=== PATIENT | female | born 1955 | race Caucasian/White ===

== ENCOUNTER 2022-12-03 10:01 | Observation (INO) ==
--- NOTE | 2022-10-30 15:03 | PAT Medication Instructions ---
Medication Instructions Date of Service October 30, 2022 Home Medications Medication Instructions Recorded ondansetron HCl 4 mg tablet 4 mg PO Q8H PRN nausea and 03/18/22 vomiting #10 tabs eluxadoline 75 mg tablet (Viberzi) 75 mg PO BID #60 tabs 07/16/22 acetaminophen 650 mg 1,300 mg PO Q12H PRN pain #120 tabs 09/30/22 tablet,extended release (Tylenol Arthritis Pain) sertraline 50 mg tablet See Rx Instructions .Route 09/30/22 .COMPLEX #30 tabs cetirizine 5 mg-pseudoephedrine ER 1 tab PO BID #30 tabs 10/21/22 120 mg tablet,extended release,12hr (Zyrtec-D) fluticasone propionate 115 2 puff inhalation BID #12 grams 10/21/22 mcg-salmeterol 21 mcg/actuation HFA inhaler (Advair HFA) fluticasone propionate 50 2 spray intranasal BID #16 grams 10/21/22 mcg/actuation nasal spray,suspension psyllium husk 0.52 gram capsule (Daily Fiber) 1.04 gm PO QAM loperamide 2 mg tablet 4 mg PO QAM ondansetron HCl 4 mg tablet 4 mg PO Q8H PRN nausea and vomiting eluxadoline 75 mg tablet (Viberzi) 75 mg PO BID glucosamine 750 [id number] no1 644 mg-C 30 mg-renetta 1 mg tablet (Osteo Bi-Flex Triple Strength) 1 tab PO BID ipratropium 20 mcg-albuterol 100 mcg/actuation mist for inhalation 1 puff inhalation QID PRN Wheezing acetaminophen 650 mg tablet,extended release (Tylenol Arthritis Pain) 1,300 mg PO Q12H PRN pain sertraline 50 mg tablet See Rx Instructions cefdinir 300 mg capsule 300 mg PO BID cetirizine 5 mg-pseudoephedrine ER 120 mg tablet,extended release,12hr (Zyrtec- D) 1 tab PO BID fluticasone propionate 115 mcg-salmeterol 21 mcg/actuation HFA inhaler (Advair HFA) 2 puff inhalation BID fluticasone propionate 50 mcg/actuation nasal spray,suspension 2 spray intranasal BID prednisone 20 mg tablet 40 mg PO DAILY alprazolam 0.25 mg tablet 0.25 mg PO QAM amlodipine 5 mg tablet 5 mg PO QAM lisinopril 5 mg tablet 5 mg PO PM metronidazole 0.75 % topical cream 1 applic topical BID PRN Rash omeprazole 20 mg capsule,delayed release 20 mg PO BID Continue as directed sertraline 50 mg tablet See Rx Instructions cefdinir 300 mg capsule 300 mg PO BID prednisone 20 mg tablet 40 mg PO DAILY STOP taking 2 weeks before surgery glucosamine 750 [id number] no1 644 mg-C 30 mg-renetta 1 mg tablet (Osteo Bi-Flex Triple Strength) 1 tab PO BID STOP taking 24 hours before surgery metronidazole 0.75 % topical cream 1 applic topical BID PRN Rash DO NOT take the morning of surgery psyllium husk 0.52 gram capsule (Daily Fiber) 1.04 gm PO QAM loperamide 2 mg tablet 4 mg PO QAM eluxadoline 75 mg tablet (Viberzi) 75 mg PO BID cetirizine 5 mg-pseudoephedrine ER 120 mg tablet,extended release,12hr (Zyrtec- D) 1 tab PO BID Take morning of surgery With a small sip of water, OTHERWISE NOTHING TO EAT OR DRINK AFTER MIDNIGHT: ondansetron HCl 4 mg tablet 4 mg PO Q8H PRN nausea and vomiting (if needed) ipratropium 20 mcg-albuterol 100 mcg/actuation mist for inhalation 1 puff in halation QID PRN Wheezing (use if needed; please bring with you to hospital day of surgery if possible) acetaminophen 650 mg tablet,extended release (Tylenol Arthritis Pain) 1,300 mg PO Q12H PRN pain (if needed) fluticasone propionate 115 mcg-salmeterol 21 mcg/actuation HFA inhaler (Advair HFA) 2 puff inhalation BID fluticasone propionate 50 mcg/actuation nasal spray,suspension 2 spray intranasal BID alprazolam 0.25 mg tablet 0.25 mg PO QAM amlodipine 5 mg tablet 5 mg PO QAM omeprazole 20 mg capsule,delayed release 20 mg PO BID Take evening before surgery ondansetron HCl 4 mg tablet 4 mg PO Q8H PRN nausea and vomiting (if needed) ipratropium 20 mcg-albuterol 100 mcg/actuation mist for inhalation 1 puff inhalation QID PRN Wheezing (if needed) acetaminophen 650 mg tablet,extended release (Tylenol Arthritis Pain) 1,300 mg PO Q12H PRN pain (if needed) eluxadoline 75 mg tablet (Viberzi) 75 mg PO BID cetirizine 5 mg-pseudoephedrine ER 120 mg tablet,extended release,12hr (Zyrtec- D) 1 tab PO BID fluticasone propionate 115 mcg-salmeterol 21 mcg/actuation HFA inhaler (Advair HFA) 2 puff inhalation BID fluticasone propionate 50 mcg/actuation nasal spray,suspension 2 spray intranasal BID lisinopril 5 mg tablet 5 mg PO PM omeprazole 20 mg capsule,delayed release 20 mg PO BID Other Notes If you have any questions please call us at [phone] or [phone] or [phone] or [phone]
--- NOTE | 2022-11-07 11:24 | Anesthesiology Consultation ---
Date of Service November 07, 2022 Assessment & Plan (1) Encounter for pre-operative examination: Chart Review Chart Review: Acceptable Risk for Surgery (pending PCP clearance and response re: anemia ) and Patient seen in Pre Admission Testing - Awaiting PCP clearance 11/18/22 (workload note sent to PCP to address at upcoming appt re: anemia) - Pt is NOT a Same Day Joint candidate due to BMI Per [facility] appt on 11/07/22, patient denies any recent travel or large group activities. Pt with cough and congestion around 10/21/22. Tested Covid negative at home. Treated with steroids and antibiotic. Feeling better- mild residual congestion- almost completely resolved. Pt is vaccinated for Covid. Preop Covid testing done in PAT 11/07/22=negative. Educated on importance of using Covid precautions one week prior to surgery Teaching & Discussion Pre-Anesthesia Teaching/Discussion Notes: Instructed NPO after midnight before surgery,except medications with 15 cc of water. Medication instructions provided according to the [facility] guidelines. History Surgery Operation Date: 12/03/22 12:45 Proposed Procedures p Left Total Knee Arthroplasty - Aldo Tony MD Height/Weight Height: 5 ft 4 in Weight: 122.4 kg Allergies Allergy/AdvReac Type Severity Reaction Status Date / Time erythromycin base Allergy Severe Nausea Verified 10/30/22 12:20 adhesive Allergy Intermediate Rash Verified 11/07/22 11:22 colestipol Allergy Intermediate Joint Pain Verified 10/30/22 12:20 doxycycline Allergy Intermediate Hives Verified 10/30/22 12:20 famotidine AdvReac Severe CP, joint Verified 10/30/22 12:20 pain duloxetine [From Cymbalta] AdvReac Intermediate Anxiety Verified 10/30/22 12:20 Medications Home Medications Medication Instructions Recorded Confirmed Last Taken psyllium husk 0.52 gram capsule 1.04 gm PO QAM 02/28/19 10/30/22 Unknown (Daily Fiber) loperamide 2 mg tablet 4 mg PO QAM 09/03/20 10/30/22 06/14/21 ondansetron HCl 4 mg tablet 4 mg PO Q8H PRN nausea and 03/18/22 10/30/22 Unknown vomiting #10 tabs eluxadoline 75 mg tablet (Viberzi) 75 mg PO BID #60 tabs 07/16/22 10/30/22 Unknown glucosamine 750 [id number] 1 tab PO BID 09/16/22 10/30/22 Unknown no1 644 mg-C 30 mg-reentta 1 mg tablet (Osteo Bi-Flex Triple Strength) ipratropium 20 mcg-albuterol 100 1 puff inhalation QID PRN Wheezing 09/16/22 10/30/22 Unknown mcg/actuation mist for inhalation acetaminophen 650 mg 1,300 mg PO Q12H PRN pain #120 tabs 09/30/22 10/30/22 Unknown tablet,extended release (Tylenol Arthritis Pain) cefdinir 300 mg capsule 300 mg PO BID 10/21/22 10/30/22 Unknown fluticasone propionate 115 2 puff inhalation BID #12 grams 10/21/22 10/30/22 Unknown mcg-salmeterol 21 mcg/actuation HFA inhaler (Advair HFA) fluticasone propionate 50 2 spray intranasal BID #16 grams 10/21/22 10/30/22 Unknown mcg/actuation nasal spray,suspension lisinopril 5 mg tablet 5 mg PO PM 10/30/22 10/30/22 Unknown metronidazole 0.75 % topical cream 1 applic topical BID PRN Rash 10/30/22 10/30/22 Unknown omeprazole 20 mg capsule,delayed 20 mg PO BID 10/30/22 10/30/22 Unknown release alprazolam 0.25 mg tablet 0.25 mg PO HS PRN sleep #30 tabs 11/07/22 Unknown cetirizine 10 mg tablet (Zyrtec) 10 mg PO QPM 11/07/22 11/07/22 Unknown Past Medical History Medical History Acid reflux Well controlled and stable with Omeprazole Acne rosacea Stable Agoraphobia with panic attacks Allergic rhinitis Anxiety Asthma recent flare up with pollen/season > treated with steroids and abx- almost back to baseline (improving)> (usually) rare res inh use COPD, moderate recent flare up with pollen/season > treated with steroids and abx- almost back to baseline (improving)> (usually) rare res inh use History of anesthesia reaction during last EGD, when anesthesia was being started, pt's eyes kept rapidly moving back and forth, and after that procedure only, experienced severe nausea History of Clostridioides difficile infection 2020 > resolved Hypercholesterolemia Hypertension Irritable bowel syndrome with diarrhea Sleep apnea cpap Exercise / Class Metabolic Activity III < 4 Walking/Shop/Light housework (one flight of stairs- no chest pain, mild SOB ) Past Family History Family History Mother Depression Diabetes Coronary heart disease Lung cancer Father Diabetes Lung cancer Brother Diabetes COPD (chronic obstructive pulmonary disease) Sister Lung cancer Past Surgical History Surgical History H/O arthroscopic knee surgery right H/O wrist surgery right History of colonoscopy History of esophagogastroduodenoscopy (EGD) History of total right knee replacement Hx of lumpectomy right breast > benign S/P trigger finger release left thumb [place] teeth extracted Past Anesthesia History No Hx of Anesthesia Complications (remote hx of issues with 2019 EGD at [facility] (pt felt like eyes were moving back and forth after receiving sedation medication through IV/severe PONV- no issues noted per 12/26/19 EGD anesthesia record at [facility] ) and No Family Hx of Anesthesia Complications (with exception to children- PONV ) History of PONV History of PONV (remote hx of nausea with most recent EGD at [facility] in 2019) and Hx of Motion Sickness Social History Smoking Status: Never smoker Do You Dip or Chew Tobacco: No Hx Alcohol Use: No Hx Substance Use: No substance use type: does not use Review of Systems Chest heaviness - with most recent URI- PCP aware- had EKG done in office (no issues)- no issues since that time - will be seeing PCP prior to surgery for clearance 11/18/22 Mild congestion since recent URI- continues to improve Increased leg cramping - usually at night Patient denies chest pain, shortness of breath, cough, wheezing, palpitations. No hx of seizures, stroke, GA. No hx of blood clots or blood transfusions Physical Exam Vital Signs VITALS BP 119/75 P 66 TEMP 97.7 SP02 97% RESP 16 Constitutional no acute distress ENMT Mouth: no TMJ clicking Thyromental Distance: < 3.5 Finger Breadths (3.0) Mallampati Class: III Neck + thick neck and + limited neck extension (mild ) Respiratory normal respiratory effort; no respiratory distress Auscultation: lungs clear to auscultation bilaterally; no wheezes Cardiovascular Rate/Rhythm: regular rate and regular rhythm Heart Sounds: no murmur Vessels: no carotid bruit Musculoskeletal Spine: no pain with cervical ROM Extremities: extremities normal to inspection Psychiatric Orientation: alert Lab Results Anesthesia Preop Results Results Anesthesia Widget: WBC 5.11 K/ul (4.8-10.8) 11/07/22 Hgb 11.9 g/dl (12.0-16.0) L 11/07/22 Hct 35.4 % (37.0-47.0) L 11/07/22 Plt 175 K/uL (130-400) 11/07/22 Na 139 mmol/L (136-145) 11/07/22 K 4.1 mmol/L (3.5-5.1) 11/07/22 Cl 105 mmol/L (98-107) 11/07/22 CO2 27 mmol/L (21-32) 11/07/22 BUN 23 mg/dl (6-23) 11/07/22 Creat 0.74 mg/dl (0.6-1.2) 11/07/22 Glucose Level 114 mg/dl (70-99(Fasting)) H 11/07/22 PT 10.5 Seconds (9.0-12.0) 11/07/22 PTT 27.7 Seconds (21.0-31.0) 11/07/22 INR 1.0 (0.9-1.1) 11/07/22 Urine Color Yellow 11/07/22 Urine Appearance Clear (Clear) 11/07/22 Urine pH 6.0 (4.5-7.5) 11/07/22 Urine Specific [place] 1.011 (1.000-1.030) 11/07/22 Urine Protein Negative (Negative) 11/07/22 Urine Glucose (UA) Negative (Negative) 11/07/22 Urine Ketones Negative (Negative) 11/07/22 Urine Blood Negative (Negative) 11/07/22 Urine Nitrite Negative (Negative) 11/07/22 Urine Bilirubin Negative (Negative) 11/07/22 Urine Urobilinogen Negative (Negative) 11/07/22 Urine Leukocyte Esterase Negative (Negative) 11/07/22 Blood Type A Positive 11/07/22 Antibody Screen NEGATIVE 11/07/22 Testing Laboratory Results Mild anemia- new from 09/2022- workload note sent to PCP to address at upcoming clearance appt Electrocardiogram Date: 11/07/22 Findings: + NSR @ (66bpm ) Normal EKG per cardio Chest X-Ray Date: 11/07/22 Findings: + NAD
--- NOTE | 2022-11-27 08:28 | History & Physical Report ---
Date of Service November 27, 2022 Assessment & Plan (1) Primary osteoarthritis of left knee: Plan: Treatment options discussed with the patient. She would like to proceed with surgery. Risks, benefits and alternatives to surgery including but not limited to infection, DVT, pain, stiffness, need for revision surgery, damage to blood vessels, damage to nerves, PE, , were discussed with the patient and they wish to proceed. Plan on left total knee arthroplasty scheduled for [facility] on 12/03/[address] Tony. Plan on Xarelto post op for DVT prophylaxis. Plan on home health PT. All questions answered. Patient will follow up post op. History of Present Illness Chief Complaint: Left knee pain Primary Care Provider: Raz Solomon MD 67yo female with PMHx significant for SPEEDY, HTN, IBS, GERD who presents with ongoing left knee pain. She has failed conservative measures. Pain is interfering with her daily activities. She would like to proceed with left knee replacement. Patient denies headaches, sweats, fevers, chills, double vision, blurred vision, cough, sore throat, dysphagia, chest pain, sob, wheezing, n/v/d/c, numbness, tingling, fatigue, urinary symptoms, mood disorders. ROS positive for left knee pain and stiffness. Allergies Allergy/AdvReac Type Severity Reaction Status Date / Time erythromycin base Allergy Severe Nausea Verified 11/18/22 10:10 adhesive Allergy Intermediate Rash Verified 11/18/22 10:10 colestipol Allergy Intermediate Joint Pain Verified 11/18/22 10:10 doxycycline Allergy Intermediate Hives Verified 11/18/22 10:10 famotidine AdvReac Severe CP, joint Verified 11/18/22 10:10 pain duloxetine [From Cymbalta] AdvReac Intermediate Anxiety Verified 11/18/22 10:10 Home Medications Medication Instructions Recorded Confirmed Type loperamide 2 mg tablet 4 mg PO QAM 09/03/20 11/18/22 History eluxadoline 75 mg tablet (Viberzi) 75 mg PO BID #60 tabs 07/16/22 11/18/22 Rx glucosamine 750 [id number] 1 tab PO BID 09/16/22 11/18/22 History no1 644 mg-C 30 mg-renetta 1 mg tablet (Osteo Bi-Flex Triple Strength) ipratropium 20 mcg-albuterol 100 1 puff inhalation QID PRN Wheezing 09/16/22 11/18/22 History mcg/actuation mist for inhalation acetaminophen 650 mg 1,300 mg PO Q12H PRN pain #120 tabs 09/30/22 11/18/22 Rx tablet,extended release (Tylenol Arthritis Pain) fluticasone propionate 115 2 puff inhalation BID #12 grams 10/21/22 11/18/22 Rx mcg-salmeterol 21 mcg/actuation HFA inhaler (Advair HFA) fluticasone propionate 50 2 spray intranasal BID #16 grams 10/21/22 11/18/22 Rx mcg/actuation nasal spray,suspension lisinopril 5 mg tablet 5 mg PO PM 10/30/22 11/18/22 History metronidazole 0.75 % topical cream 1 applic topical BID PRN Rash 10/30/22 11/18/22 History omeprazole 20 mg capsule,delayed 20 mg PO BID 10/30/22 11/18/22 History release alprazolam 0.25 mg tablet 0.25 mg PO HS PRN sleep #30 tabs 11/07/22 11/18/22 Rx cetirizine 10 mg tablet (Zyrtec) 10 mg PO QPM 11/07/22 11/18/22 History ascorbic acid (vitamin C) 250 mg 250 mg PO BID #60 tabs 11/13/22 11/18/22 Rx tablet ferrous sulfate 325 mg (65 mg 325 mg PO BID #60 tabs 11/13/22 11/18/22 Rx iron) tablet mecobalamin (vitamin B12) 1,000 1,000 mcg PO DAILY #30 tabs 11/17/22 11/18/22 Rx mcg chewable tablet Past Med/Surg History Medical History Acid reflux Well controlled and stable with Omeprazole Acne rosacea Stable Agoraphobia with panic attacks Allergic rhinitis Anxiety Asthma recent flare up with pollen/season > treated with steroids and abx- almost back to baseline (improving)> (usually) rare res inh use COPD, moderate recent flare up with pollen/season > treated with steroids and abx- almost back to baseline (improving)> (usually) rare res inh use History of anesthesia reaction during last EGD, when anesthesia was being started, pt's eyes kept rapidly moving back and forth, and after that procedure only, experienced severe nausea History of Clostridioides difficile infection 2020 > resolved Hypercholesterolemia Hypertension Irritable bowel syndrome with diarrhea Sleep apnea cpap Surgical History H/O arthroscopic knee surgery right H/O wrist surgery right History of colonoscopy History of esophagogastroduodenoscopy (EGD) History of total right knee replacement Hx of lumpectomy right breast > benign S/P trigger finger release left thumb [place] teeth extracted Family History Mother Depression Diabetes Coronary heart disease Lung cancer Father Diabetes Lung cancer Brother Diabetes COPD (chronic obstructive pulmonary disease) Sister Lung cancer Social History Smoking Status: Never smoker Second Hand Exposure: No; Do You Dip or Chew Tobacco: No; Hx Alcohol Use: No Hx Substance Use: No Preferred Language: Turkmen Communication Ability: Effective Visual Impairment: No Limitations Hearing Ability: Normal Cosmetology Instructor Required: No Beliefs That Will Affect Care: None marital status: / Current Living Situation: Spouse current occupational status: employed Feels Safe at Home: Yes Dental Care, Regularly: Yes Physical Activity Frequency: Does not Exercise Seatbelt Use: always Sunscreen Use: No Assistive Devices: Glasses Review of Systems All systems reviewed & are unremarkable except as noted in HPI & below Physical Exam Constitutional: well developed and well nourished; no acute distress Eyes: PERRL, conjunctivae normal, anicteric sclerae ENMT: external ear and nose normal, oropharynx normal Neck: trachea midline, no thyromegaly Respiratory: normal respiratory effort, lungs clear to auscultation Cardiovascular: RRR, no murmur, no edema Musculoskeletal: Left knee: Varus alignment. Mild effusion. Medial joint line tenderness. Mild crepitation. Positive Jayant's. Stable to valgus and varus stress. ROM 0-130 degrees. Skin: no rashes, warm and dry Neurologic: patellar DTR's 2+ bilat, sensation intact Psychiatric: A+Ox3, euthymic affect Results & Data Diagnostic Findings Left knee: Varus alignment, bone on bone in the medial compartment, subluxation, subchondral sclerosis, osteophytes, and some patellofemoral OA as well, with endstage osteoarthritis of the left knee
[~2022-12-03 10:01] MED LIST: ACETAMINOPHEN 500 MG TAB PO SCH; BUPIVACAINE 0.5 % 5 MG/1 ML PF 10ML VIAL ONE; CeleBREX 200 MG CAP PO SCH; GABAPENTIN 300 MG CAP PO SCH; LR 500ML BOLUS, THEN 15ML/HR IV SCH; METOCLOPRAMIDE HCL 10 MG TABLET PO SCH; ROPIVACAINE 0.5% 5 MG/ML 30 ML VIAL ONE; ROPIVACAINE 0.5% HCL/PF 150 MG, BUPIVACAINE 0.75% MPF 20 ML, EPINEPHrine 30MG/30ML (OR ... INSTIL SCH; TRANEXAMIC ACID 1,000 MG **IV Intra-op IV SCH; TRANEXAMIC ACID 1,000 MG **IV Pre-op IV SCH; dexAMETHasone 4 MG TAB PO SCH
[2022-12-03] MEDS ORDERED: HYDROmorphone INJ 2 MG/ML SYR/VIAL IV PRN (11:40)
[2022-12-03] MEDS ORDERED: ePHEDrine sulfate 50 MG/ML AMP IV PRN (11:40)
[2022-12-03] MEDS ORDERED: fentaNYL citrate PF 100 MCG/2 ML VIAL IV PRN (11:40)
[2022-12-03] MEDS ORDERED: PROMETHAZINE HCL 12.5 MG in SODIUM CHLORIDE 0.9% 50 ML IV PRN (11:40)
[2022-12-03] MEDS ORDERED: ATROPINE SULFATE 0.1 MG/ML 10ML SYR IV PRN (11:40)
[2022-12-03] MEDS ORDERED: ONDANSETRON INJ 2 MG/ML 2 ML VIAL IV PRN (11:40)
[2022-12-03] MEDS ORDERED: fentaNYL citrate PF 100 MCG/2 ML VIAL ONE (11:44)
[2022-12-03] MEDS ORDERED: DEXAMETHASONE SOD INJ 4 MG/ML VIAL ONE (11:44)
[2022-12-03] MEDS ORDERED: MIDAZOLAM HCL 1 MG/ML 2ML VIAL ONE ×3 (11:44→15:49)
[2022-12-03] MEDS ORDERED: PROPOFOL IV EMULSION 10 MG/ML 20 ML VIAL IV ONE ×4 (11:44→15:25)
[2022-12-03] MEDS ORDERED: LIDOCAINE 2% 2 ML VIAL/AMP(20MG/ML) INFIL ONE ×2 (11:44→14:25)
[2022-12-03] MEDS ORDERED: ONDANSETRON INJ 2 MG/ML 2 ML VIAL ONE (11:44)
[2022-12-03] MEDS ORDERED: METOPROLOL TARTRATE 1 MG/ML VIAL IV ONE (11:57)
--- NOTE | 2022-12-03 13:13 | History & Physical Bridge Note ---
Date of Service December 03, 2022 History & Physical Bridge Note I have examined the patient, reviewed the History & Physical and in the interval since the performance of the History & Physical I have noted the following changes of clinical significance: no changes noted
[2022-12-03] MEDS ORDERED: ORTHO JOINT ANESTHETIC ONE (13:42)
[2022-12-03] MEDS ORDERED: GLYCOPYRROLATE 0.2 MG/ML VIAL ONE (14:15)
[2022-12-03] MEDS ORDERED: KETAMINE 50 MG/5 ML SYRINGE ONE (14:15)
[2022-12-03] MEDS ORDERED: ePHEDrine sulfate 50 MG/ML SYR ONE (14:36)
[2022-12-03] MEDS ORDERED: PHENYLEPHRINE 100MCG/ML 5ML SYR ONE (15:20)
--- NOTE | 2022-12-03 16:24 | Operative Report ---
Post Operative Report Pre & Post Diagnosis Operation Date: 12/03/22 12:15 Pre-Op Diagnosis: Left Knee Osteoarthritis,morbid obesity 46.3 Post-Op Diagnosis: Left Knee Osteoarthritis,morbid obesity 46.3 I identified the patient and participated in the time-out.: Yes Procedure Operation Date: 12/03/22 12:15 Actual Procedures p Left Total Knee Arthroplasty, Cemented(Left), increased difficulty secondary to morbid obesity BMI 46.3 Surgeon Aldo Tony MD Diesel Dinkey Operator [place] COYLE Estimated Blood Loss 5 Findings Consistent with Post-Op Diagnosis Specimens Bone cuts Drains 2 Hemovac Anesthesia Type MAC Spinal Regional Complications none Disposition Disposition: Recovery Room Indications 67-year-old female with chronic osteoarthritis in her left knee now [id number] medial compartment and advanced patellofemoral osteoarthritis with failed conservative management and successful right knee replacement in 2008. Description of Procedure Patient taken to the operating room the size under spinal MAC regional block anesthesia. Patient was placed supine on the operating table. A pneumatic tourniquet was placed about the left obese upper thigh. The left lower extremity was prepped and draped in sterile fashion. Knee exam demonstrated an obese leg with a heavy leg that had no instability 0 through 125 degrees range of motion. The leg was elevated exsanguinated with an Esmarch bandage and pneumatic tourniquet was raised to 350 millimeters of mercury. Skin incised sharply in longitudinal fashion. Subcutaneous flaps elevated. Incision was made through the medial retinaculum extending up in the mid third of the quadriceps tendon and down to the medial tibial tubercle. Intra-articular findings demonstrated unicompartment and patellofemoral osteoarthritis with tricompartmental osteophytes and loose bodies anteriorly to the lateral meniscus and some small intra-articular ganglion cysts. The [employer] triathlon total knee arthroplasty system was used. To expose the knee the infrapatellar fat pad was resected. The meniscal remnants and cruciate ligaments were resected. The anterior fat pad over the femur in the area of the anterior flange of the femoral component was resected. Lateral synovial bands released. The loose bodies remove the ganglion cysts resected the femur was exposed. An intramedull trish drill hole was made into the canal. A guide sean was placed. Distal femoral cutting guide was adjusted to resect a 5 degree valgus cut with 8 millimeters distal femur resected. The knee was extended and a subperiosteal peel lateral release was performed around the patella. Patella width was measured and width was reproduced using a freehand cut technique and a 33 symmetrical patella component. The 3 drill holes were made and the excess lateral facet was beveled off to prevent any impingement. Attention was taken back to the femur which was exposed with retractors and the femoral sizing guide was pinned in position. The drill holes were placed in 3 of external rotation to match epicondylar axis. Femur sized for a 4 component. The 4-in-1 cutting block was placed and then the anterior posterior and chamfer cuts are made. The tibia was then subluxed. The external tibial cutting guide was just to make a perpendicular cut to the long axis of the tibia below the most deficient bone loss side. A lamina blow molder was used and the flexion extension gaps were balanced. This required medial and posterior medial release on the tibia. All posterior osteophytes removed. All meniscal remnants were resected. The tibia exposed and the trial tibial component size 4 was externally rotated in line with the tibial tubercle and pinned in position. The punch for stem was used. The notch cutting device was centered appropriately and the femoral notch cut was made. The femoral trial was inserted. Trial tibial inserts were placed and size 11 gave balanced ligaments through flexion and extension. Patella tracking was assessed. The patella tracked centrally. The trial components were then removed and the orthomix anesthetic cocktail was injected per protocol. The knee was then copiously irrigated with pulsatile lavage saline solution. Final components were then cemented with a Refobacin cement. Final components were [employer] triathlon left size 4 posterior stabilized femoral component, size 4 tibial component, size 11 posterior stabilized X.3 polyethylene tibial insert, 33 symmetrical X.3 polyethylene patella. After the cement cured the Betadine soak was used for 3 minutes. Further pulsatile lavage irrigation was then performed and 2 Hemovac drains were brought out laterally. The quadriceps tendon and medial retinaculum were closed with figure of 8 #1 Vicryl sutures. The knee was taken through full range of motion and the repair was secure. Knee range of motion was 0 through 130 degrees. The subcutaneous tissues were closed with 2-0 Vicryl sutures. Skin was closed with ayaz. Sterile dressings were applied. The patient tolerated the procedure well. Slim OCYLE was my physician nutrition services assistant who participated as judicial administrative assistant and was involved in all aspects of the procedure including patient positioning prepping and draping,leg positioning ,soft tissue retraction and instrument management and participated in the closing and will participate in postoperative care of the patient. There was increased level difficulty due to her obesity which added 30 minutes to the procedure. The patient tolerated the procedure well. I attest to the content of the Intraoperative Record and any orders documented therein. Any exceptions are noted below.
--- NOTE | 2022-12-03 16:55 | XRay Report ---
XR knee LT 1 or 2V routine CLINICAL HISTORY: Surgical Post Op TECHNIQUE: 2 views of the left knee were obtained. Comparison: None available at the time of this dictation. FINDINGS: Patient is status post total knee arthroplasty with expected postsurgical changes including soft tiss ue swelling and subcutaneous emphysema. No periarticular lucency or hardware fracture is seen. IMPRESSION: Expected postoperative appearance status post placement of total knee arthroplasty. ACT 112: Negative or not required by law. Electronically signed by: Morris Lei M.D. 12/03/2022 4:54 PM
--- NOTE | 2022-12-03 17:05 | Anesthesiology Progress Note ---
Date of Service December 03, 2022 Anesthesia Post Procedure Vital Signs Vital Signs: Temp Pulse Pulse Resp BP Pulse Ox O2 Del Method 12/03/22 17:00 36.2 C L 82 20 159/85 H 98 Room Air 12/03/22 16:50 94 H 16 131/86 97 Room Air 12/03/22 16:40 100 H 18 120/67 98 Room Air 12/03/22 16:30 36.2 C L 98 H 20 109/54 L 100 Oxymask 12/03/22 10:56 Room Air 12/03/22 10:56 36.7 C 77 20 140/65 97 Room Air O2 Flow Rate 12/03/22 17:00 12/03/22 16:50 12/03/22 16:40 12/03/22 16:30 6 12/03/22 10:56 12/03/22 10:56 Pain Intensity Left Knee: Pain Intensity: 5 Transfer of Care Handoff Completed per policy Notes Mental Status: alert / awake / arousable Patient Amnestic to Procedure: Yes Nausea / Vomiting: adequately controlled Pain: adequately controlled Airway Patency, RR, SpO2: stable & adequate BP & HR: stable & adequate Hydration State: stable & adequate Neuraxial Anesthesia: was administered and sensory block is resolving Anesthetic Complications: no major complications apparent
[2022-12-03] MEDS ORDERED: METOCLOPRAMIDE HCL INJ 5 MG/ML 2 ML VIAL IV PRN (17:34)
[2022-12-03] MEDS ORDERED: bisacodyL 10 MG SUPP PR PRN (17:34)
[2022-12-03] MEDS ORDERED: NALOXONE HCL 0.4 MG/1 ML VIAL/CARP IV PRN (17:34)
[2022-12-03] MEDS ORDERED: MAGNESIUM HYDROXIDE SUSP 30 ML UDC PO PRN (17:34)
[2022-12-03] MEDS ORDERED: HYDROmorphone INJ 0.5 MG/0.5 ML SYR IV PRN (17:34)
[2022-12-03] MEDS: ALLERGY Noted to ORDERED Medication SCH ×2 (17:37→17:38)
[2022-12-03] MEDS ORDERED: IPRATROPIUM BROMIDE HFA INHALER INH PRN (17:44)
[2022-12-03] MEDS ORDERED: ALBUTEROL HFA 8 GM INHALER INH PRN (17:49)
[2022-12-03] MEDS: SODIUM CHLORIDE 0.9% 1000ML 1,000 ML IV SCH (17:57)
[2022-12-03] MEDS ORDERED: metroNIDAZOLE 0.75% TOPICAL GEL 45 GM TUBE TOP PRN (18:20)
[2022-12-03] MEDS: FLUTICASONE/VILANTEROL 200/25MCG 14 PUFFS/INHALER INH SCH (18:35)
[2022-12-03] MEDS: oxyCODONE HCL IR 5 MG TAB (IMMEDIATE RELEASE) PO PRN ×2 (19:08→23:15)
[2022-12-03] MEDS: ONDANSETRON INJ 2 MG/ML 2 ML VIAL IV PRN (19:08)
[2022-12-03] MEDS ORDERED: SENNA 8.6 MG TAB PO SCH (21:00)
[2022-12-03] MEDS ORDERED: CETIRIZINE HCL 10 MG TABLET PO SCH (21:00)
[2022-12-03] MEDS: FERROUS SULFATE 325 MG TAB PO SCH (21:05)
[2022-12-03] MEDS: ASCORBIC ACID 500 MG TAB PO SCH (21:05)
[2022-12-03] MEDS: PANTOprazole 40 MG TAB PO SCH (21:06)
[2022-12-03] MEDS: ACETAMINOPHEN 500 MG TAB PO SCH (21:07)
[2022-12-03] MEDS: DOCUSATE SODIUM 100 MG CAP PO SCH (21:09)
[2022-12-03] MEDS: FLUTICASONE PROPIONATE NA SPR 16 GM BTL SCH (21:09)
[2022-12-03] MEDS: ceFAZolin 2000MG 2,000 MG/15 ML SYR IV SCH (23:09)
[2022-12-04] MEDS: SODIUM CHLORIDE 0.9% 1000ML 1,000 ML IV SCH (04:16)
[2022-12-04] MEDS: ACETAMINOPHEN 500 MG TAB PO SCH (06:10)
[2022-12-04] MEDS: ceFAZolin 2000MG 2,000 MG/15 ML SYR IV SCH (06:12)
[2022-12-04 07:16] LABS: Hematocrit (blood only) 35.5 % (37.0-47.0); Hemoglobin 11.8 g/dl (12.0-16.0); Mean Corpuscular Hemoglobin 29.1 pg (25.0-34.0); Mean Corpuscular Hgb Conc 33.2 g/dL (32.0-36.0); Mean Corpuscular Volume 87.4 fL (80.0-100.0); Mean Platelet Volume 11.3 fL (9.4-12.4); Platelet Count 221 K/uL (130-400); RDW Coefficient of Variation 12.9 % (11.5-14.5); RDW Standard Deviation 41.1 fL (36.4-46.3); Red Blood Count 4.06 M/uL (4.20-5.40); White Blood Count 12.75 K/ul (4.8-10.8)
--- NOTE | 2022-12-04 07:45 | Orthopedic Progress Note ---
Date of Service December 04, 2022 Assessment & Plan (1) Primary osteoarthritis of left knee: Plan: POD#1 Left TKA -PT/OT -Pain management as written -DVT prophylaxis-SCDs, TEDs, Xarelto 10mg daily -AM labs-hemoglobin 11.8 from 12.9 preop, mild leukocytosis likely reactive due to perioperative steroids/stress response. Pt is asymptomatic. -D/C planning-plan on discharge home with HHPT. Likely discharge today as long as therpay goes well and pain controlled. Admission and Anticipated Discharge Date Admission Date: December 03, 2022 Subjective Patient is POD#1 left TKA. Doing well this morning. Pain well controlled. No current issues. Denies chest pain, sob, dizziness, MAYER, n/v/d, fever/chills. Review of Systems Review of Systems: All systems reviewed & are unremarkable except as noted in Subjective Physical Exam Physical Exam: Left knee: Dressing is c/d/i, toes mobile with good DF, able to do SLR. No calf tenderness. Distally n/v status and sensation grossly intact. Constitutional: WD/WN, vitals as above Results & Data Vital Signs (Past 12 Hours) Vital Signs Temp Pulse Resp BP Pulse Ox O2 Del Method 12/04/22 07:17 36.7 C 69 18 157/85 H 94 Room Air 12/04/22 02:51 36.7 C 81 18 144/66 H 92 CPAP 12/03/22 21:59 36.5 C 87 18 139/69 96 Room Air 12/03/22 20:22 36.4 C L 86 20 127/70 96 Room Air Laboratory Results Lab Results 12/03/22 12/04/22 Range/Units 10:20 06:29 WBC 12.75 H (4.8-10.8) K/ul RBC 4.06 L (4.20-5.40) M/uL Hgb 11.8 L (12.0-16.0) g/dl Hct 35.5 L (37.0-47.0) % MCV 87.4 (80.0-100.0) fL MCH 29.1 (25.0-34.0) pg MCHC 33.2 (32.0-36.0) g/dL RDW Std Deviation 41.1 (36.4-46.3) fL RDW Coeff of Andressa 12.9 (11.5-14.5) % Plt Count 221 (130-400) K/uL MPV 11.3 (9.4-12.4) fL SARS-CoV-2, RNA, NAAT NEGATIVE (NEGATIVE)
[2022-12-04 08:02] LABS: Calcium 9.2 mg/dl (8.6-10.3); Potassium 4.6 mmol/L (3.5-5.1)
[2022-12-04 08:07] LABS: BUN Creatinine Ratio 31.9 (10-20); Creatinine Clr Calc Pharmacy 79.5 ml/min; Est GFR (African American) 76.7 ml/min; Est GFR (Non-African American) 66.2 ml/min
[2022-12-04] MEDS: PANTOprazole 40 MG TAB PO SCH (08:13)
[2022-12-04] MEDS: oxyCODONE HCL IR 5 MG TAB (IMMEDIATE RELEASE) PO PRN ×2 (08:13→11:44)
[2022-12-04] MEDS: ASCORBIC ACID 500 MG TAB PO SCH (08:14)
[2022-12-04] MEDS: FLUTICASONE/VILANTEROL 200/25MCG 14 PUFFS/INHALER INH SCH (08:14)
[2022-12-04] MEDS: FERROUS SULFATE 325 MG TAB PO SCH (08:14)
[2022-12-04] MEDS: FLUTICASONE PROPIONATE NA SPR 16 GM BTL SCH (08:14)
[2022-12-04] MEDS: ONDANSETRON INJ 2 MG/ML 2 ML VIAL IV PRN (08:15)
[2022-12-04] MEDS: DOCUSATE SODIUM 100 MG CAP PO SCH (08:21)
[2022-12-04] MEDS ORDERED: CYANOCOBALAMIN (B-12) 500 MCG TABLET PO SCH (09:00)
[2022-12-04] MEDS ORDERED: LOPERAMIDE HCL 2 MG CAP PO PRN (09:00)
[2022-12-04] MEDS ORDERED: MULTIVITAMIN TAB PO SCH (09:00)
[2022-12-04] MEDS ORDERED: ALPRAZolam 0.25 MG TABLET PO SCH (09:00)
[2022-12-04] MEDS ORDERED: RIVAROXABAN 10 MG TABLET PO SCH (16:30)
[2022-12-04] MEDS ORDERED: lisinopril 5 MG TAB PO SCH (21:00)
--- NOTE | 2022-12-05 08:17 | Discharge Summary ---
Date of Service December 05, 2022 Admission HPI Per Admitting Provider 67yo female with PMHx significant for SPEEDY, HTN, IBS, GERD who presents with ongoing left knee pain. She has failed conservative measures. Pain is interfering with her daily activities. She would like to proceed with left knee replacement. Patient denies headaches, sweats, fevers, chills, double vision, blurred vision, cough, sore throat, dysphagia, chest pain, sob, wheezing, n/v/d/c, numbness, tingling, fatigue, urinary symptoms, mood disorders. ROS positive for left knee pain and stiffness. Admission Exam Per Admitting Provider Constitutional: well developed and well nourished; no acute distress Eyes: PERRL, conjunctivae normal, anicteric sclerae ENMT: external ear and nose normal, oropharynx normal Neck: trachea midline, no thyromegaly Respiratory: normal respiratory effort, lungs clear to auscultation Cardiovascular: RRR, no murmur, no edema Musculoskeletal: Left knee: Varus alignment. Mild effusion. Medial joint line tenderness. Mild crepitation. Positive Jayant's. Stable to valgus and varus stress. ROM 0-130 degrees. Skin: no rashes, warm and dry Neurologic: patellar DTR's 2+ bilat, sensation intact Psychiatric: A+Ox3, euthymic affect Principal Diagnosis Left knee OA Discharge Exam Left knee: Dressing is c/d/i, toes mobile with good DF, able to do SLR. No calf tenderness. Distally n/v status and sensation grossly intact. Discharge Data Allergies Allergy/AdvReac Type Severity Reaction Status Date / Time erythromycin base Allergy Severe Nausea Verified 12/03/22 10:46 adhesive Allergy Intermediate Rash Verified 12/03/22 10:46 colestipol Allergy Intermediate Joint Pain Verified 12/03/22 10:46 doxycycline Allergy Intermediate Hives Verified 12/03/22 10:46 famotidine AdvReac Severe CP, joint Verified 12/03/22 10:46 pain duloxetine [From Cymbalta] AdvReac Intermediate Anxiety Verified 12/03/22 10:46 Consultations 11/28/22 10:06 Consult Hospitalist Routine Procedures Performed Operation Date: 12/03/22 12:15 Actual Procedures p Left Total Knee Arthroplasty, Cemented(Left) - Aldo Tony MD Ordered Studies 12/03/22 05:00 US - OR guided needle placemen Routine Hospital Course (1) Primary osteoarthritis of left knee: POD#1 Left TKA -PT/OT -Pain management as written -DVT prophylaxis-SCDs, TEDs, Xarelto 10mg daily -AM labs-hemoglobin 11.8 from 12.9 preop, mild leukocytosis likely reactive due to perioperative steroids/stress response. Pt is asymptomatic. -D/C planning-plan on discharge home with HHPT. Likely discharge today as long as therpay goes well and pain controlled. Lab Results 12/03/22 12/04/22 12/04/22 Range/Units 10:20 06:29 06:29 WBC 12.75 H (4.8-10.8) K/ul RBC 4.06 L (4.20-5.40) M/uL Hgb 11.8 L (12.0-16.0) g/dl Hct 35.5 L (37.0-47.0) % MCV 87.4 (80.0-100.0) fL MCH 29.1 (25.0-34.0) pg MCHC 33.2 (32.0-36.0) g/dL RDW Std Deviation 41.1 (36.4-46.3) fL RDW Coeff of Andressa 12.9 (11.5-14.5) % Plt Count 221 (130-400) K/uL MPV 11.3 (9.4-12.4) fL Sodium 136 (136-145) mmol/L Potassium 4.6 (3.5-5.1) mmol/L Chloride 103 (98-107) mmol/L Carbon Dioxide 23 (21-32) mmol/L Anion Gap 10 (3-11) BUN 29 H (6-23) mg/dl Creatinine 0.91 (0.6-1.2) mg/dl Est Cr Clr Drug Dosing 79.5 ml/min Est GFR ( Amer) 76.7 ml/min Est GFR (Non-Af Amer) 66.2 ml/min BUN/Creatinine Ratio 31.9 H (10-20) Glucose 140 H (70-99(Fasting)) mg/dl Calcium 9.2 (8.6-10.3) mg/dl SARS-CoV-2, RNA, NAAT NEGATIVE (NEGATIVE) Total Time Total Time Spent Total Time Spent (In Minutes): 20 Discharge Plan Discharge Items Patient Disposition: Home - Home Health Services Reason For Visit: Left Knee Osteoarthritis Discharge Diagnosis: Left knee osteoarthritis Activity: Per Instructions section Non-emergency contact: Surgeon Call non-emergency contact if: you have any medication questions, your pain is not controlled, your pain is concerning for you, you have a fever, your temperature is above 101, your wound has increased redness and your wound has increased drainage Follow-up/Referrals: Raz Solomon MD [Primary Care Provider] - 12/11/22 1:30 pm (APPOINTMENT WITH [facility]) Diet: Regular Addtl Attending Provider Instructions: ACTIVITY RECOMMENDATIONS: SELF CARE INSTRUCTIONS AFTER TOTAL KNEE REPLACEMENT A. You may need to continue a physical therapy program after discharge from the hospital. There are several options available to you. Your doctor will assist you in selecting the best one for you. 1. An out-patient facility 2 to 3 times a week for therapy or home therapy. 2. Continue working on all exercises taught to you in the hospital. Your goals should be to increase bending of your knee to 90 degrees and beyond and to fully straighten your knee. B. You may progress at your own pace from walking with a walker or crutches to a cane; then to no assistive devices. C. Make walking a part of your daily routine. Be up as much as comfortable with rest periods throughout the day. Rest with leg elevation is very important. Use the ice wrap frequently for the first 3-4 weeks. D. There are no restrictions on activities. You may ride in a car, shop, participate in financial economist and all social activities. E. Wear the long elastic stockings (YING hose) 20 hours a day for 2 weeks after surgery. They can be removed several times a day for laundering and for a bath. F. You may shower, no tub baths until cleared by your doctor. SPECIAL CARE INSTRUCTIONS: VERY IMPORTANT TO READ AND REVIEW A. There are a few signs you need to watch for after you are home. Call [facility] if you notice any of the followin. Increased severe knee pain. Some pain is expected especially when you exercise. 2. Increased swelling in your leg or knee; pain or swelling of the calf muscle in either lower leg. 3. Any fluid drainage from the incision. 4. Shortness of breath or chest pain. B. Please call [facility] at if you have any concerns or questions about your operation or recovery. The doctor or his nurse will return your call promptly. C. You must take antibiotics before dental work, bladder, bowel or other surgery. Your doctor will provide you with a permanent care to carry describing this precaution. IMPORTANT: * REMEMBER TO TAKE ASPIRIN, 81 MG, TWICE DAILY FOR 4 WEEKS UNLESS OTHERWISE DIRECTED. THIS IS YOUR BLOOD THINNER. * HIGH RISK PATIENTS MAY BE PRESCRIBED A STRONGER BLOOD THINNER. THIS WILL BE PROVIDED AT DISCHARGE. * CALL IF INCREASED PAIN, REDNESS, DRAINAGE OR FEVER GREATER THAT 101. * WEAR YING HOSE 20 HOURS PER DAY FOR 2 WEEKS. You should perform daily dressing changes. Some drainage onto dressing is normal. You may shower and get incision wet indirectly after 48 hours. Do not soak or submerge your incision. IF INCISION IS LEAKING THROUGH DRESSING, CALL THE OFFICE . FOLLOW UP VISIT: If appointment is not already scheduled: Please call [facility] to make a follow-up appointment for 2 weeks after your surgery at . Stand-Alone Forms: My [facility] [employer], Pain - Opioid Pain Management, Smoking Cessation Medications and DC Order Prescriptions: New oxycodone 5 mg Tablet 5 - 10 mg PO .Q4h-6h MDD 6 PRN (Reason: pain) Qty: 30 0RF Rx Instructions: Ongoing therapy, Dr. Tony supervising acetaminophen [Tylenol Extra Strength] 500 mg Tablet 1,000 mg PO Q8 Qty: 60 0RF Xarelto 10 mg Tablet 10 mg PO QDD Qty: 30 0RF ondansetron HCl 4 mg tablet 4 mg PO Q8H PRN (Reason: nausea and vomiting) Qty: 20 0RF Continued Viberzi 75 mg tablet 75 mg PO BID Qty: 60 5RF Rx Instructions: must administer with a meal/food ferrous sulfate 325 mg (65 mg iron) tablet 325 mg PO BID Qty: 60 0RF ascorbic acid (vitamin C) 250 mg tablet 250 mg PO BID Qty: 60 0RF mecobalamin (vitamin B12) 1,000 mcg tablet,chewable 1,000 mcg PO DAILY Qty: 30 5RF Rx Instructions: had injection last week of Vit B12 loperamide [Imodium A-D] 2 mg tablet 4 mg PO QAM Patient Comments: please confirm if pt is still taking along with eluxadoline fluticasone propion-salmeterol [Advair HFA] 115-21 mcg/actuation HFA aerosol inhaler 2 puff inhalation BID Qty: 12 4RF Combivent Respimat 20-100 mcg/actuation mist 1 puff inhalation QID PRN (Reason: Wheezing) Rx Instructions: verbal Rx called to [facility]- pt wanted 1 w/ 1 refill. Osteo Bi-Flex Triple Strength 750 mg-644 mg- 30 mg-1 mg tablet 1 tab PO BID metronidazole [MetroCream] 0.75 % cream 1 applic topical BID PRN (Reason: Rash) omeprazole 20 mg capsule,delayed release(DR/EC) 20 mg PO BID lisinopril 5 mg tablet 5 mg PO PM cetirizine [Zyrtec] 10 mg Tablet 10 mg PO QPM alprazolam [Xanax] 0.25 mg tablet 0.25 mg PO QAM fluticasone propionate [Flonase Allergy Relief] 50 mcg/actuation spray,suspension 2 spray intranasal BID Discontinued acetaminophen [Tylenol Arthritis Pain] 650 mg tablet extended release 1,300 mg PO Q12H PRN (Reason: pain) Qty: 120 3RF Admission Data Admit Date/Time: 12/03/22 16:34 Attending Provider: Aldo Tony Admit Provider: Aldo Tony Primary Care Provider: Raz Solomon Other Providers: Raymond Hawk Thomas E. ; [facility] Other Interventions: Discharge Summary Assessment (RN) Last Done: 12/04/22 10:24
== END 2022-12-04 13:58 | disposition home health service (06) ==
LOC: 3E 10:01 → ASU 10:01